=== PATIENT | male | born 1965 | race Caucasian/White ===

== ENCOUNTER → 2019-07-18 | Outpatient (CLI) | payer MEDICARE ==
[~2019-07-18] MED LIST: AMIT25; ASPI325 PO; BACL10; CEPH500 PO; GABA300 PO; IBUP800 PO; MS MED; Norco 7.5-3251 EACH; Transderm-Scop1 EACH; Tysabri300 MG/15 IV; VITAMIN D5000 UNIT; ZOLP5 PO
== END | disposition home or self-care (01) ==
LOC: LAB EV 09:19 → LAB SHORT 09:19
DX: S69.91XA Unspecified injury of right wrist, hand and finger(s), initial encounter (principal)
CPT/HCPCS: 87070; 87075; 87205